=== PATIENT | male | born 1975 | race Hispanic/Latino ===

== ENCOUNTER 2016-12-04 02:10 | Emergency (ER) | payer SELFPAY ==
[2016-12-04 02:25] VITALS: BP 118/65; PULSE 86; RESP 16; TEMP 98.1; O2SAT 99
[2016-12-04] MEDS ORDERED: Morphine 4 MG/ML VIAL IVP STA (02:34)
--- NOTE | 2016-12-04 02:35 | ED PDOC ---
HPI: Abdomen Time Seen by Provider: 12/04/16 02:12 Chief Complaint (Nursing): Abdominal Pain Chief Complaint (Provider): Renal Colic History Per: Patient Additional Complaint(s): Pt ambulated to ER for eval of abd pain and vomiting - onset yesterday. Pt seen and treated at [facility] for same complaint - dx w/ renal stones Flomax, Percocet Past Medical History Vital Signs: Last Vital Signs Temp 98.1 F 12/04/16 02:21 Pulse 86 12/04/16 02:21 Resp 16 12/04/16 02:21 BP 118/65 12/04/16 02:21 Pulse Ox 99 12/04/16 02:35 - Home Medications Home Medications: Ambulatory Orders Medication Instructions Recorded Ciprofloxacin [Cipro] 500 mg PO BID #10 tab 12/04/16 - Allergies Allergies/Adverse Reactions: Allergies Allergy/AdvReac Type Severity Reaction Status Date / Time No Known Allergies Allergy Verified 12/04/16 02:25 - Laboratory Results Result Diagrams: 12/04/16 03:04 12/04/16 03:04 - ECG O2 Sat by Pulse Oximetry: 99 Disposition - Clinical Impression Clinical Impression: Renal colic - Disposition Referrals: Alonzo Fox MD [Medical Doctor] - Condition: STABLE Prescriptions: Ciprofloxacin [Cipro] 500 mg PO BID #10 tab Instructions: Kidney Stones (ED) Forms: [facility] (Estonian) Print Language: KENYAN
[2016-12-04] MEDS ORDERED: Sodium Chloride 0.9% 1,000 ML IV STA (02:51)
[2016-12-04] MEDS ORDERED: Lidocaine 85 MG in Sodium Chloride 0.9% 100 ML IV STA (03:03)
[2016-12-04 03:10] LABS: BASO % 0.2 % (0.0-2.0); EOS # 0.1 K/uL (0.0-0.7); EOS % 0.4 % (0.0-4.0); LYMPH # 3.2 K/uL (1.0-4.3); LYMPH % 19.8 % (20.0-40.0); MEAN CELL VOLUME 91.6 fl (80.0-94.0); MEAN CORPUSCULAR HEMOGLOBIN 30.7 pg (27.0-31.0); MEAN CORPUSCULAR HGB CONC 33.5 g/dL (33.0-37.0); MEAN PLATELET VOLUME 9.2 fl (7.2-11.7); MONO # 1.5 K/uL (0.0-0.8); MONO % 9.5 % (0.0-10.0); NEUT # 11.2 K/uL (1.8-7.0); NEUT % 70.1 % (50.0-75.0); RED CELL DISTRIBUTION WIDTH 12.5 % (11.5-14.5)
[2016-12-04 03:24] LABS: ALB/GLOB RATIO 1.6 (1.0-2.1); ALKALINE PHOSPHATASE 72 U/L (38-126); ALT/SGPT 33 U/L (21-72); AMYLASE 228 U/L (30-110); AST/SGOT 28 U/L (17-59); BILIRUBIN,TOTAL 0.9 mg/dl (0.2-1.3); BLOOD UREA NITROGEN 16 mg/dl (9-20); CALCIUM 8.9 mg/dL (8.4-10.2); CARBON DIOXIDE 20 mmol/L (22-30); CHLORIDE 105 mmol/L (98-107); GFR AFRICAN-AMERICAN > 60; GLUCOSE,RANDOM 103 mg/dL (75-110); LIPASE 430 U/L (23-300); POTASSIUM 3.6 MMOL/L (3.6-5.0); SODIUM 141 mmol/l (132-148); TOTAL PROTEIN 6.9 G/DL (6.3-8.2)
[2016-12-04 03:36] LABS: RBC URINE 281 /hpf (0-3); URINE BACTERIA OCC (<OCC); URINE BILIRUBIN NEGATIVE (NEGATIVE); URINE BLOOD LARGE (NEGATIVE); URINE COLOR YELLOW (YELLOW); URINE GLUCOSE (UA) NEG (Normal); URINE KETONE 80 mg/dL (NEGATIVE); URINE PROTEIN 100 mg/dL (NEGATIVE); URINE UROBILINOGEN 0.2-1.0 mg/dL (0.2-1.0); WBC URINE 13 /hpf (0-5)
[2016-12-04 03:37] LABS: URINE LEUKOCYTE ESTERASE SMALL Leu/uL (Negative)
--- NOTE | 2016-12-04 12:20 | CARD ---
APPROVED REPORT EKG Measurement Heart [id number] <Conclusion> Normal sinus rhythm Normal ECG
--- NOTE | 2016-12-04 14:14 | CT ---
PROCEDURE: CT Abdomen and Pelvis without intravenous contrast HISTORY: renal colic COMPARISON: None. TECHNIQUE: Technique. Contrast Dose: Radiation dose: Total exam DLP = 322 mGy-cm. This CT exam was performed using one or more of the following dose reduction techniques: Automated exposure control, adjustment of the mA and/or kV according to patient size, and/or use of iterative reconstruction technique. FINDINGS: LOWER THORAX: Unremarkable. LIVER: Unremarkable. No gross lesion or ductal dilatation. GALLBLADDER AND BILE DUCTS: Unremarkable. PANCREAS: Unremarkable. No gross lesion or ductal dilatation. SPLEEN: Unremarkable. ADRENALS: Unremarkable. No mass. KIDNEYS AND URETERS: Right obstructive uropathy with moderate right hydronephrosis and hydroureter with a 4 x 6 millimeter calculus in the mid right ureter. Additional left knee nephrolithiasis. VASCULATURE: Unremarkable. No aortic aneurysm. BOWEL: Unremarkable. No obstruction. No gross mural thickening. APPENDIX: Unremarkable. Normal appendix. PERITONEUM: Unremarkable. No free fluid. No free air. LYMPH NODES: Unremarkable. No enlarged lymph nodes. BLADDER: Unremarkable. REPRODUCTIVE: Unremarkable. BONES: Left hip surgery. OTHER FINDINGS: None. IMPRESSION: Right obstructive uropathy with moderate right hydronephrosis and hydroureter with a 4 x 6 millimeter calculus in the mid right ureter. Additional left knee nephrolithiasis.
== END 2016-12-04 05:48 | disposition home or self-care (01) ==
LOC: H.ER 02:10
DX: N13.2 Hydronephrosis with renal and ureteral calculous obstruction (principal)
CPT/HCPCS: 74176; 80053; 81003; 82150; 83690; 84484; 85025; 93005; 96374; 96375; 99282; J1170; J1885; J2405; J2765; J7040